=== PATIENT | female | born 1955 | race African-American/Black ===

== ENCOUNTER 2018-05-01 13:16 | Inpatient (IN) | payer OTHER ==
[~2018-05-01] VITALS: Ht 165.1 cm; Wt 159.0 kg
[2018-05-01] MEDS ORDERED: IPRATROPIUM BROMIDE (0.02%) 0.5MG/2.5ML NEB HHN STA (14:09)
[2018-05-01] MEDS ORDERED: MAGNESIUM 2 G PREMIX 50 ML IV STA (14:09)
[2018-05-01] MEDS ORDERED: ALBUTEROL (0.083%) 2.5MG/3ML NEB HHN STA (14:09)
[2018-05-01] MEDS ORDERED: METHYLPREDNISOLONE SOD SUCC 125 MG/2 ML VIAL IV STA (14:09)
[2018-05-01 14:39] LABS: BASOPHILS % 0.2 % (0.0-2.0); EOSINOPHILS % 0.1 % (0.0-5.0); HEMATOCRIT. 43.9 % (36.0-48.0); HEMOGLOBIN. 14.6 g/dL (12.0-16.0); LYMPHOCYTES % 7.4 % (20.0-50.0); MEAN CORPUSCULAR VOLUME 96.3 fL (81.0-99.0); MEAN PLATELET VOLUME 8.2 fl (7.4-10.4); MONOCYTES % 4.7 % (2.0-8.0); NEUTROPHILS % 87.6 % (40.0-76.0); PLATELET 240 x1000/uL (130-400); RED BLOOD CELL COUNT 4.56 mill/uL (4.2-5.4); RED CELL DISTRIBUTION WIDTH 14.6 % (11.6-14.6)
[2018-05-01 14:43] LABS: CHLORIDE 109 mEq/L (98-107)
[2018-05-01] MEDS ORDERED: FUROSEMIDE 40MG/4ML VIAL IVP ONE (15:00)
[2018-05-01 15:41] LABS: BG BASE EXCESS -0.7 mmol/L (-2.0-2.0); BG CARBOXYHEMOGLOBIN 0.7 % (0.5-1.5); BG DEOXYHEMOGLOBIN 3.6 % (0.0-5.0); BG FRACTION INSPIRED OXYGEN 60; BG HCO3 ACT 23.7 mmol/L (22.0-26.0); BG METHEMOGLOBIN 0.4 % (0.0-1.5); BG OXYGEN SATURATION 96.4 % (92.0-98.5); BG OXYHEMOGLOBIN 95.3 % (94.0-97.0); BG PCO2 38.5 mmHg (35.0-45.0); BG PH 7.407 (7.350-7.450); BG PO2 92.5 mmHg (75.0-100.0); BG SAMPLE SITE RIGHT RADIAL; BG TOTAL HEMOGLOBIN 15.6 g/dL (12.0-18.0)
[2018-05-01 18:39] VITALS: BP 128/88
[2018-05-01 20:00] VITALS: BP 119/82
[2018-05-01] MEDS: GUAIFENESIN 600MG ER TABLET PO SCH (21:51)
[2018-05-01] MEDS: ENOXAPARIN 40MG/0.4ML SYR SUBCUT SCH (21:52)
[2018-05-01] MEDS: METHYLPREDNISOLONE SOD SUCC 40 MG/ML VIAL IV SCH (23:37)
[2018-05-01] MEDS: LOSARTAN POTASSIUM 100 MG TABLET PO SCH (23:45)
[2018-05-02] VITALS: BP 116/74
[2018-05-02] MEDS ORDERED: TRAMADOL 50MG TABLET PO PRN
[2018-05-02] MEDS: LOSARTAN POTASSIUM 100 MG TABLET PO SCH ×2 (00:21→10:24)
[2018-05-02] MEDS: ATORVASTATIN CALCIUM 40MG TABLET PO SCH ×2 (00:21→20:45)
[2018-05-02] MEDS: AZITHROMYCIN 500 MG TABLET PO SCH ×2 (00:21→20:45)
[2018-05-02] MEDS: IPRATROPIUM/ALBUTEROL 0.5-3(2.5)MG/3ML NEB HHN SCH ×6 (00:28→21:08)
[2018-05-02 04:00] VITALS: BP 139/79
[2018-05-02] MEDS: METHYLPREDNISOLONE SOD SUCC 40 MG/ML VIAL IV SCH ×4 (05:33→23:52)
[2018-05-02] MEDS: PANTOPRAZOLE 40MG DR TABLET PO SCH (06:10)
[2018-05-02 06:54] LABS: BASOPHILS % 0.1 % (0.0-2.0); HEMATOCRIT. 44.3 % (36.0-48.0); HEMOGLOBIN. 14.7 g/dL (12.0-16.0); LYMPHOCYTES % 10.3 % (20.0-50.0); MEAN CORPUSCULAR HEMOGLOBIN 31.8 pg (28.0-32.0); MEAN CORPUSCULAR VOLUME 95.5 fL (81.0-99.0); MEAN PLATELET VOLUME 8.7 fl (7.4-10.4); MONOCYTES % 4.1 % (2.0-8.0); NEUTROPHILS % 85.5 % (40.0-76.0); PLATELET 246 x1000/uL (130-400); RED BLOOD CELL COUNT 4.63 mill/uL (4.2-5.4); RED CELL DISTRIBUTION WIDTH 14.3 % (11.6-14.6)
[2018-05-02 06:58] LABS: CHLORIDE 109 mEq/L (98-107)
[2018-05-02 07:07] LABS: PHOSPHORUS 3.7 mg/dL (2.5-4.9)
[2018-05-02 08:00] VITALS: BP 129/90
[2018-05-02] MEDS: GUAIFENESIN 600MG ER TABLET PO SCH ×2 (10:23→20:45)
[2018-05-02] MEDS: ASPIRIN 81MG TABLET PO SCH (10:23)
[2018-05-02] MEDS: NIFEDIPINE XL 30MG TAB PO SCH (10:24)
[2018-05-02] MEDS: FUROSEMIDE 40MG/4ML VIAL IVP SCH (10:24)
[2018-05-02] MEDS: ENOXAPARIN 40MG/0.4ML SYR SUBCUT SCH ×2 (10:26→20:45)
[2018-05-02 12:00] VITALS: BP 124/82
[2018-05-02 16:00] VITALS: BP 118/82
[2018-05-02 20:00] VITALS: BP 103/69
[2018-05-03] VITALS (9 sets, daily range): BP systolic 107–154; BP diastolic 57–88
[2018-05-03] MEDS: IPRATROPIUM/ALBUTEROL 0.5-3(2.5)MG/3ML NEB HHN SCH ×5 (00:25→16:15)
[2018-05-03] MEDS: PANTOPRAZOLE 40MG DR TABLET PO SCH (06:25)
[2018-05-03] MEDS: METHYLPREDNISOLONE SOD SUCC 40 MG/ML VIAL IV SCH ×3 (06:25→17:14)
[2018-05-03 06:55] LABS: HEMATOCRIT. 44.2 % (36.0-48.0); HEMOGLOBIN. 14.6 g/dL (12.0-16.0); MEAN CORPUSCULAR HEMOGLOBIN 31.7 pg (28.0-32.0); MEAN CORPUSCULAR VOLUME 96.3 fL (81.0-99.0); MEAN PLATELET VOLUME 8.6 fl (7.4-10.4); PLATELET 227 x1000/uL (130-400); RED BLOOD CELL COUNT 4.59 mill/uL (4.2-5.4); RED CELL DISTRIBUTION WIDTH 14.5 % (11.6-14.6)
[2018-05-03 07:01] LABS: CHLORIDE 104 mEq/L (98-107)
[2018-05-03 07:14] LABS: LDL CHOLESTEROL 61 mg/dL (5-100)
[2018-05-03 07:15] LABS: HDL CHOLESTEROL 86 mg/dL (40-59)
[2018-05-03] MEDS: LOSARTAN POTASSIUM 100 MG TABLET PO SCH (09:41)
[2018-05-03] MEDS: NIFEDIPINE XL 30MG TAB PO SCH (09:41)
[2018-05-03] MEDS: ASPIRIN 81MG TABLET PO SCH (09:41)
[2018-05-03] MEDS: GUAIFENESIN 600MG ER TABLET PO SCH ×2 (09:41→20:50)
[2018-05-03] MEDS: ENOXAPARIN 40MG/0.4ML SYR SUBCUT SCH (09:41)
[2018-05-03] MEDS: FUROSEMIDE 40MG/4ML VIAL IVP SCH (11:43)
[2018-05-03] MEDS ORDERED: IOHEXOL-300 100 ML BOTTLE ONE (11:45)
[2018-05-03] MEDS ORDERED: ENOXAPARIN 120MG/0.8ML SYR SUBCUT ONE (13:15)
[2018-05-03] MEDS ORDERED: ENOXAPARIN 100MG/ML SYR SUBCUT NR (13:15)
[2018-05-03 13:52] LABS: PLATELET ESTIMATE NORMAL
[2018-05-03 16:53] LABS: INR 1.1; PROTHROMBIN TIME 11.2 sec (9.4-11.6)
[2018-05-03] MEDS ORDERED: APIXABAN 5 MG TABLET PO SCH (17:00)
[2018-05-03] MEDS: ATORVASTATIN CALCIUM 40MG TABLET PO SCH (20:50)
[2018-05-03] MEDS: AZITHROMYCIN 500 MG TABLET PO SCH (20:50)
[2018-05-03] MEDS: UMECLIDINIUM BROMIDE 1 INH BLST.W.DEV IH SCH (22:13)
[2018-05-03] MEDS: FLUTICASONE/VILANTEROL 200-25 BLST.W.DEV ORI SCH (22:13)
[2018-05-03] MEDS: IPRATROPIUM/ALBUTEROL 0.5-3(2.5)MG/3ML NEB HHN PRN (22:17)
[2018-05-04] VITALS (11 sets, daily range): BP systolic 101–140; BP diastolic 40–91
[2018-05-04] MEDS: IPRATROPIUM/ALBUTEROL 0.5-3(2.5)MG/3ML NEB HHN PRN ×5 (01:36→21:11)
[2018-05-04] MEDS: ENOXAPARIN 150MG/ML SYR SUBCUT SCH ×2 (04:38→14:13)
[2018-05-04] MEDS: PANTOPRAZOLE 40MG DR TABLET PO SCH (06:24)
[2018-05-04 06:41] LABS: BASOPHILS % 0.2 % (0.0-2.0); HEMATOCRIT. 43.4 % (36.0-48.0); HEMOGLOBIN. 14.5 g/dL (12.0-16.0); LYMPHOCYTES % 11.2 % (20.0-50.0); MEAN CORPUSCULAR HEMOGLOBIN 31.9 pg (28.0-32.0); MEAN CORPUSCULAR VOLUME 95.6 fL (81.0-99.0); MEAN PLATELET VOLUME 8.5 fl (7.4-10.4); MONOCYTES % 8.7 % (2.0-8.0); NEUTROPHILS % 79.9 % (40.0-76.0); PLATELET 222 x1000/uL (130-400); RED BLOOD CELL COUNT 4.54 mill/uL (4.2-5.4); RED CELL DISTRIBUTION WIDTH 14.6 % (11.6-14.6)
[2018-05-04 08:29] LABS: CHLORIDE 107 mEq/L (98-107)
[2018-05-04] MEDS: GUAIFENESIN 600MG ER TABLET PO SCH ×2 (08:58→22:22)
[2018-05-04] MEDS: NIFEDIPINE XL 30MG TAB PO SCH (08:58)
[2018-05-04] MEDS: PREDNISONE 20MG TABLET PO SCH (08:58)
[2018-05-04] MEDS: FUROSEMIDE 40MG/4ML VIAL IVP SCH (08:58)
[2018-05-04] MEDS: FLUTICASONE/VILANTEROL 200-25 BLST.W.DEV ORI SCH (09:04)
[2018-05-04] MEDS: LOSARTAN POTASSIUM 100 MG TABLET PO SCH ×2 (09:04→22:23)
[2018-05-04] MEDS: UMECLIDINIUM BROMIDE 1 INH BLST.W.DEV IH SCH (09:04)
[2018-05-04] MEDS: ATORVASTATIN CALCIUM 40MG TABLET PO SCH (22:22)
[2018-05-04] MEDS: AZITHROMYCIN 500 MG TABLET PO SCH (22:23)
[2018-05-05] VITALS (12 sets, daily range): BP systolic 110–151; BP diastolic 63–87
[2018-05-05] MEDS: ENOXAPARIN 150MG/ML SYR SUBCUT SCH ×2 (01:57→15:20)
[2018-05-05 06:24] LABS: BASOPHILS % 0.1 % (0.0-2.0); EOSINOPHILS % 0.3 % (0.0-5.0); HEMATOCRIT. 42.3 % (36.0-48.0); LYMPHOCYTES % 26.4 % (20.0-50.0); MEAN CORPUSCULAR HEMOGLOBIN 31.8 pg (28.0-32.0); MEAN CORPUSCULAR VOLUME 96.2 fL (81.0-99.0); MEAN PLATELET VOLUME 8.1 fl (7.4-10.4); MONOCYTES % 8.8 % (2.0-8.0); NEUTROPHILS % 64.4 % (40.0-76.0); PLATELET 190 x1000/uL (130-400); RED CELL DISTRIBUTION WIDTH 14.4 % (11.6-14.6)
[2018-05-05] MEDS: PANTOPRAZOLE 40MG DR TABLET PO SCH (06:26)
[2018-05-05 06:49] LABS: CHLORIDE 103 mEq/L (98-107)
[2018-05-05 08:45] LABS: BG BASE EXCESS 2.5 mmol/L (-2.0-2.0); BG CARBOXYHEMOGLOBIN 1.2 % (0.5-1.5); BG DEOXYHEMOGLOBIN 9.9 % (0.0-5.0); BG FRACTION INSPIRED OXYGEN 21; BG HCO3 ACT 27.5 mmol/L (22.0-26.0); BG METHEMOGLOBIN 0.3 % (0.0-1.5); BG OXYGEN SATURATION 89.9 % (92.0-98.5); BG OXYHEMOGLOBIN 88.6 % (94.0-97.0); BG PCO2 43.3 mmHg (35.0-45.0); BG PO2 59.8 mmHg (75.0-100.0); BG SAMPLE SITE LEFT RADIAL; BG TOTAL HEMOGLOBIN 15.5 g/dL (12.0-18.0); BG VENT MODE ROOM AIR
[2018-05-05] MEDS: PREDNISONE 20MG TABLET PO SCH (09:40)
[2018-05-05] MEDS: GUAIFENESIN 600MG ER TABLET PO SCH ×2 (09:40→21:02)
[2018-05-05] MEDS: NIFEDIPINE XL 30MG TAB PO SCH (09:41)
[2018-05-05] MEDS: LOSARTAN POTASSIUM 100 MG TABLET PO SCH ×2 (09:46→21:02)
[2018-05-05] MEDS: FUROSEMIDE 40MG/4ML VIAL IVP SCH (09:53)
[2018-05-05] MEDS: UMECLIDINIUM BROMIDE 1 INH BLST.W.DEV IH SCH (19:14)
[2018-05-05] MEDS: FLUTICASONE/VILANTEROL 200-25 BLST.W.DEV ORI SCH (19:14)
[2018-05-05] MEDS: AZITHROMYCIN 500 MG TABLET PO SCH (21:02)
[2018-05-05] MEDS: ATORVASTATIN CALCIUM 40MG TABLET PO SCH (21:03)
[2018-05-06] VITALS (13 sets, daily range): BP systolic 96–138; BP diastolic 54–90
[2018-05-06] MEDS: ENOXAPARIN 150MG/ML SYR SUBCUT SCH (01:09)
[2018-05-06] MEDS: FLUTICASONE/VILANTEROL 200-25 BLST.W.DEV ORI SCH (07:59)
[2018-05-06] MEDS: UMECLIDINIUM BROMIDE 1 INH BLST.W.DEV IH SCH (07:59)
[2018-05-06] MEDS: APIXABAN 5 MG TABLET PO SCH ×2 (08:00→21:10)
[2018-05-06] MEDS: GUAIFENESIN 600MG ER TABLET PO SCH ×2 (08:00→21:10)
[2018-05-06] MEDS: FAMOTIDINE 20MG TABLET PO SCH ×2 (08:01→21:10)
[2018-05-06] MEDS: PREDNISONE 20MG TABLET PO SCH (08:01)
[2018-05-06] MEDS: FUROSEMIDE 40MG/4ML VIAL IVP SCH (08:03)
[2018-05-06] MEDS: LOSARTAN POTASSIUM 100 MG TABLET PO SCH ×2 (08:04→21:10)
[2018-05-06] MEDS: NIFEDIPINE XL 30MG TAB PO SCH (08:05)
[2018-05-06] MEDS: AZITHROMYCIN 500 MG TABLET PO SCH (21:10)
[2018-05-06] MEDS: ATORVASTATIN CALCIUM 40MG TABLET PO SCH (21:10)
[2018-05-07] VITALS (11 sets, daily range): BP systolic 105–136; BP diastolic 49–80
[2018-05-07] MEDS: UMECLIDINIUM BROMIDE 1 INH BLST.W.DEV IH SCH (08:10)
[2018-05-07] MEDS: GUAIFENESIN 600MG ER TABLET PO SCH (08:11)
[2018-05-07] MEDS: FLUTICASONE/VILANTEROL 200-25 BLST.W.DEV ORI SCH (08:11)
[2018-05-07] MEDS: FAMOTIDINE 20MG TABLET PO SCH (08:11)
[2018-05-07] MEDS: NIFEDIPINE XL 30MG TAB PO SCH (08:12)
[2018-05-07] MEDS: FUROSEMIDE 40MG/4ML VIAL IVP SCH (08:12)
[2018-05-07] MEDS: PREDNISONE 20MG TABLET PO SCH (08:12)
[2018-05-07] MEDS: APIXABAN 5 MG TABLET PO SCH (08:12)
[2018-05-07] MEDS: LOSARTAN POTASSIUM 100 MG TABLET PO SCH (08:12)
[2018-05-07 14:33] LABS: BG BASE EXCESS 2.6 mmol/L (-2.0-2.0); BG CARBOXYHEMOGLOBIN 1.3 % (0.5-1.5); BG DEOXYHEMOGLOBIN 4.8 % (0.0-5.0); BG FRACTION INSPIRED OXYGEN 21; BG METHEMOGLOBIN 0.3 % (0.0-1.5); BG OXYGEN SATURATION 95.1 % (92.0-98.5); BG OXYHEMOGLOBIN 93.6 % (94.0-97.0); BG PCO2 40.5 mmHg (35.0-45.0); BG PH 7.441 (7.350-7.450); BG PO2 77.7 mmHg (75.0-100.0); BG SAMPLE SITE LEFT RADIAL; BG TOTAL HEMOGLOBIN 15.7 g/dL (12.0-18.0); BG VENT MODE ROOM AIR
[2018-05-10] MEDS ORDERED: APIXABAN 5 MG TABLET PO SCH (17:00)
[2018-05-13] MEDS ORDERED: APIXABAN 5 MG TABLET PO SCH (09:00)
== END 2018-05-07 18:45 | disposition home or self-care (01) | DRG 291 ==
LOC: ER 13:52 → 8WST 15:11 → EDBEDREQ 15:13 → CANRESERV 15:41 → ENRESERV 15:41 → 3WST 05-03 15:43
PROVIDERS: ADMIT Internal Medicine Pulmonary Disease; ATTEND Internal Medicine Pulmonary Disease
PROC: 5A09357 Assistance with Respiratory Ventilation, Less than 24 Consecutive Hours, Continuous Positive Airway Pressure (ICD-10-PCS; principal; 2018-05-02)
PROC: 5A09357 Assistance with Respiratory Ventilation, Less than 24 Consecutive Hours, Continuous Positive Airway Pressure (ICD-10-PCS; 2018-05-03)
PROC: 5A09357 Assistance with Respiratory Ventilation, Less than 24 Consecutive Hours, Continuous Positive Airway Pressure (ICD-10-PCS; 2018-05-04)
PROC: 5A09457 Assistance with Respiratory Ventilation, 24-96 Consecutive Hours, Continuous Positive Airway Pressure (ICD-10-PCS; 2018-05-05)
DX: I11.0 Hypertensive heart disease with heart failure (principal); J96.91 Respiratory failure, unspecified with hypoxia; I26.09 Other pulmonary embolism with acute cor pulmonale; J44.1 Chronic obstructive pulmonary disease with (acute) exacerbation; J45.901 Unspecified asthma with (acute) exacerbation; I82.433 Acute embolism and thrombosis of popliteal vein, bilateral; Z68.43 Body mass index [BMI] 50.0-59.9, adult; I50.9 Heart failure, unspecified; E66.01 Morbid (severe) obesity due to excess calories; R73.9 Hyperglycemia, unspecified; E83.52 Hypercalcemia; G47.33 Obstructive sleep apnea (adult) (pediatric); F17.210 Nicotine dependence, cigarettes, uncomplicated; E78.5 Hyperlipidemia, unspecified; I27.20 Pulmonary hypertension, unspecified; Z79.01 Long term (current) use of anticoagulants; Z82.49 Family history of ischemic heart disease and other diseases of the circulatory system; Z79.899 Other long term (current) drug therapy; Z91.19 Patient's noncompliance with other medical treatment and regimen; Z98.51 Tubal ligation status
CPT/HCPCS: 36415; 36600; 71045; 71260; 80048; 80053; 80061; 80076; 82375; 82805; 83036; 83605; 83735; 83880; 84100; 84443; 84484; 85025; 85379; 85610; 87040; 93005; 93306; 93970; 94640; 94644; 94660; 96365; 96366; 96375; 97162; 97166; 99285; J1650; J1940; J2920; J2930; J3475; J7512; J7611; J7620; Q9967